=== PATIENT | female | born 1960 | race Caucasian/White ===

== ENCOUNTER 2024-10-28 19:11 | Inpatient (IN) | payer OTHER, SELFPAY ==
[2024-10-28] VITALS (35 sets, daily range): BP systolic 110–139; BP diastolic 60–84; PULSE 49–129; RESP 14; TEMP 36.4–36.9; O2SAT 62–96; BMI 47.5
--- NOTE | 2024-10-28 19:19 | ECG_ITS ---
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
--- NOTE | 2024-10-28 19:19 | XR_ITS ---
The [address] [address] Patient Name: VARSHA GALVIN MRN: [id number] date: 1960 Sex: F Assigned Patient Location: ED.MAIN Current Patient Location: ER Accession/Order Number: [id number] Exam Date: 10/28/2024 19:36 Report Date: 10/28/2024 20:57 At the request of: FRANNY LA Procedure: XR chest 1V CXR - 1 VIEW HISTORY: Shortness of breath COMPARISON: None. TECHNIQUE: Single frontal view of the chest is submitted for review. FINDINGS: Diffuse prominence of interstitial lung markings. There are airspace opacities lower lobes. Lungs are adequately expanded. The cardiac silhouette measures enlarged. Pulmonary vascularity is increased. Osseous structures are within normal limits for age. Infrahilar airspace opacity. XR/XR chest 1V IMPRESSION: 1. Infrahilar airspace opacities and bibasilar airspace opacities. Please correlate for pneumonia versus atelectasis. 2. Cardiomegaly with prominence of pulmonary vascularity. Please correlate for congestive heart failure. Electronically authenticated by: OSWALDO WASHINGTON Date: 10/28/2024 20:57
--- NOTE | 2024-10-28 20:04 | ED.GENADUL1 ---
HPI HPI - General Adult General Chief complaint: Shortness of Breath/Dyspnea Stated complaint: short of breath Time Seen by Provider: 10/28/24 19:19 Source: patient Mode of arrival: ambulance Limitations: no limitations History of Present Illness HPI narrative: 64-year-old female presents to the emergency department for shortness of breath. According to the patient the shortness of breath started within the last 1 to 2 hours. She has a history of COPD. She was given 2 aerosol treatments and IV Solu-Medrol by the paramedics and seems to be feeling improved. She has not had a known fever but is on an antibiotic for pneumonia. She reportedly is supposed to be having a CAT scan at some point in the near future and it scheduled as well. She does not complain of any chest pain. Related Data Home Medications ?Medication ?Instructions ?Recorded ?Confirmed albuterol sulfate 90 mcg/actuation inhalation 10/28/24 aerosol inhaler apixaban 5 mg tablet (Eliquis) mg 10/28/24 atorvastatin 40 mg tablet mg 10/28/24 budesonide 160 mcg-glycopyr 9 inh inhalation 10/28/24 mcg-formot 4.8 mcg/actuation HFA inhaler (Breztri Aerosphere) diltiazem HCl 180 mg mg PO 10/28/24 capsule,extended release 24 hr furosemide 40 mg tablet mg 10/28/24 gabapentin 800 mg tablet mg 10/28/24 ipratropium 0.5 mg-albuterol 3 mg ml inhalation 10/28/24 (2.5 mg base)/3 mL nebulization soln levofloxacin 500 mg tablet mg 10/28/24 metoprolol tartrate 25 mg tablet mg 10/28/24 omeprazole 20 mg capsule,delayed mg 10/28/24 release oxycodone-acetaminophen 5 mg-325 tab 10/28/24 mg tablet potassium chloride 10 mEq meq 10/28/24 capsule,extended release prednisone 20 mg tablet mg 10/28/24 Allergies Allergy/AdvReac Type Severity Reaction Status Date / Time No Known Drug Allergies Allergy Verified 10/28/24 19:15 Opioid HPI Opioid Management Most Recent Opioid Data: No Data to Display Review of Systems ROS Narrative A ten point review of systems is negative except as noted above. Exam Narrative Exam Narrative: Nurses note and vital signs reviewed and patient is not hypoxic. General: The patient appears in no apparent distress. Patient is speaking in full sentences. Skin: Warm, dry, no pallor noted. There is no rash noted. Head: Normocephalic, atraumatic Eye: Normal conjunctiva, no drainage Ears, Nose, Mouth, and Throat: oral mucosa is moist. Nares patent. Cardiovascular: Regular Rate and Rhythm, tachycardic Respiratory: Lungs are clear with good air movement, no rales or rhonchi noted Back: non-tender GI: Soft and nontender Musculoskeletal: The patient has no evidence of calf tenderness, symmetrical pulses noted bilaterally Neurological: A&O, normal speech Psychiatric: Cooperative Constitutional Vital Signs, click to edit/add: Last Vital Signs Temp 98.4 F 10/28/24 19:09 Pulse 103 H 10/28/24 20:50 Resp 13 10/28/24 20:50 BP 113/84 10/28/24 20:30 Pulse Ox 89 L 10/28/24 21:30 O2 Del Method Venturi Mask 10/28/24 21:30 O2 Flow Rate 8 10/28/24 21:30 Course Vital Signs Vital signs: Vital Signs Temperature 98.4 F 10/28/24 19:09 Pulse Rate 113 H 10/28/24 19:09 Respiratory Rate 22 H 10/28/24 19:09 Blood Pressure 110/75 10/28/24 19:09 Pulse Oximetry 84 L 10/28/24 19:09 Oxygen Delivery Method Nasal Cannula 10/28/24 19:09 Oxygen Delivery Flow Rate 6 10/28/24 19:09 Temperature 98.4 F 10/28/24 19:09 Pulse Rate 103 H 10/28/24 20:50 Respiratory Rate 13 10/28/24 20:50 Blood Pressure 113/84 10/28/24 20:30 Pulse Oximetry 89 L 10/28/24 21:30 Oxygen Delivery Method Venturi Mask 10/28/24 21:30 Oxygen Delivery Flow Rate 8 10/28/24 21:30 Medical Decision Making MDM Narrative Medical decision making narrative: Chest x-ray and BNP are consistent with CHF. She is requiring supplemental oxygen and we are placing her on a Ventimask because of a history of COPD. She has an established diagnosis of pneumonia and has been on Levaquin for for 5 days and this is noted on the chest x-ray as well. COVID and influenza swabs are negative and she was given IV Lasix. She is being admitted and findings are thoroughly discussed with the patient. Differential Diagnosis Differential Diagnosis: Pneumonia, CHF, COVID, influenza Lab Data Lab results reviewed: Yes I reviewed the patient's lab results Labs: Lab Results 10/28/24 10/28/24 Range/Units 19:32 19:58 WBC 14.1 H (4.0-11.0) 10^3/uL RBC 4.29 (4.20-5.40) 10^6/uL Hgb 11.4 L (12.0-16.0) g/dL Hct 37.7 (36.0-48.0) % MCV 87.9 (81.0-99.0) fL MCH 26.6 L (26.7-34.0) pg MCHC 30.2 (29.9-35.2) g/dL RDW 15.6 H (11.0-15.0) % Plt Count 288 (150-450) 10^3/uL MPV 10.0 (9.5-13.5) fL Seg Neuts % (Manual) 95.0 H (43.0-75.0) Band Neutrophils % 0.0 (0-5) % Lymphocytes % (Manual) 3.0 L (20.5-60.0) % Atypical Lymphs % (Man) 1.0 % Monocytes % (Manual) 0.0 L (1.7-12.0) % Eosinophils % (Manual) 0.0 L (0.9-7.0) % Basophils % (Manual) 1.0 (0.2-2.0) % Neutrophils # (Manual) 13.39 H (1.4-6.5) 10^3/uL Band Neutrophils # 0.0 (0.0-0.3) 10^3/uL Lymphocytes # (Manual) 0.42 L (1.20-3.80) 10^3/uL Abs Atypical Lymphs Man 0.14 Monocytes # (Manual) 0.00 L (0.30-0.80) 10^3/uL Eosinophils # (Manual) 0.00 (0.00-0.70) 10^3/uL Basophils # (Manual) 0.14 H (0.00-0.10) 10^3/uL Hypochromasia 1+ Sodium 141 (136-145) mmol/L Potassium 4.2 (3.5-5.1) mmol/L Chloride 98 (98-107) mmol/L Carbon Dioxide 37.4 H (21.0-32.0) mmol/L Anion Gap 9.8 BUN 17.0 (7.0-18.0) mg/dL Creatinine 1.18 H (0.55-1.02) mg/dL Est GFR ( Amer) 56 L (>=60 mL/min/1.73m^2) Est GFR (Non-Af Amer) 46 L (>=60 mL/min/1.73m^2) BUN/Creatinine Ratio 14.4 Glucose 269 H (74-106) mg/dL Calcium 8.9 (8.5-10.1) mg/dL Troponin I High Sens 20.3 (4.0-51.3) pg/mL NT-Pro-B Natriuret Pep 2656.0 H* (<=900.0) pg/mL Influenza Type A Ag Negative Influenza Type B Ag Negative SARS-CoV-2 Ag (CV2AG) Negative (NEGATIVE) Imaging Data Chest x-ray: Radiologist's impression: ITS Impressions Chest X-Ray 10/28/24 19:19 IMPRESSION: 1. Infrahilar airspace opacities and bibasilar airspace opacities. Please correlate for pneumonia versus atelectasis. 2. Cardiomegaly with prominence of pulmonary vascularity. Please correlate for congestive heart failure. Electronically authenticated by: OSWALDO WASHINGTON Date: 10/28/2024 20:57 ECG Data Attestation: I personally reviewed and interpreted this ECG as follows: (EKG on my interpretation shows sinus tachycardia with a rate of 106) Critical Care Time Critical Care Time Critical Care Time: Yes Total Critical Care Time: 35 Attestation: Due to the high probability of sudden and clinically significant deterioration in the patient's condition he/she required the highest level of my preparedness to intervene urgently I provided critical care time including documentation time, medication orders and management, reevaluation, vital sign assessment, ordering and reviewing of lab tests, ordering and reviewing of x-ray studies, and admission orders. Aggregate critical care time is 35 minutes including only time during which I was engaged in work directly related to his/her care and did not include time spent treating other patients simultaneously. Discharge Plan Discharge Chief Complaint: Shortness of Breath/Dyspnea Clinical Impression: Congestive heart failure Patient Disposition: Admitted As Inpatient Time of Disposition Decision: 21:38 Condition: Fair
[2024-10-28 20:09] LABS: Hematocrit 37.7 % (36.0-48.0); Hemoglobin 11.4 g/dL (12.0-16.0); Mean Corpuscular HGB Conc 30.2 g/dL (29.9-35.2); Mean Corpuscular Hemoglobin 26.6 pg (26.7-34.0); Mean Corpuscular Volume 87.9 fL (81.0-99.0); Platelet Count 288 10^3/uL (150-450); Red Blood Count 4.29 10^6/uL (4.20-5.40); Red Cell Distribution Width 15.6 % (11.0-15.0); White Blood Count 14.1 10^3/uL (4.0-11.0)
[2024-10-28 20:18] LABS: Influenza Virus A Antigen Negative; Influenza Virus B Antigen Negative; Internal Control Within Normal Limits; SARS-CoV-2 Ag NEGATIVE (NEGATIVE)
[2024-10-28 20:27] LABS: Anion Gap 9.8; BUN Creatinine Ratio 14.4; Calcium 8.9 mg/dL (8.5-10.1); Carbon Dioxide 37.4 mmol/L (21.0-32.0); Chloride 98 mmol/L (98-107); Estimated GFR (African America 56 (>=60 mL/min/1.73m^2); Estimated GFR (Non-African Ame 46 (>=60 mL/min/1.73m^2); Glucose 269 mg/dL (74-106); Potassium 4.2 mmol/L (3.5-5.1); Sodium 141 mmol/L (136-145); Troponin I High Sensitivity 20.3 pg/mL (4.0-51.3)
[2024-10-28 20:58] LABS: Segmented Neut Absolute Manual 13.39 10^3/uL (1.4-6.5)
[2024-10-28 20:59] LABS: Atypical Lymphocytes Abs Man 0.14; Basophils Abs Manual 0.14 10^3/uL (0.00-0.10); Lymphocytes Absolute Manual 0.42 10^3/uL (1.20-3.80)
[2024-10-28 21:00] LABS: Hypochromasia 1+
[2024-10-28] MEDS: FUROSEMIDE 40 MG/4 ML VIAL IVP (22:02)
[2024-10-29] VITALS (74 sets, daily range): BP systolic 94–127; BP diastolic 57–74; PULSE 73–117; RESP 14; TEMP 36.4–36.8; O2SAT 80–98
[2024-10-29] MEDS: IPRATROPIUM/ALBUTEROL SULFATE 3 ML AMPUL.NEB IH ×4 (04:10→23:26)
[2024-10-29 05:36] LABS: PCO2 VBG 51.4 mmHg (40.0-52.0); pH VBG 7.479 (7.330-7.430)
[2024-10-29 05:37] LABS: Hematocrit 35.3 % (36.0-48.0); Hemoglobin 10.9 g/dL (12.0-16.0); Mean Corpuscular HGB Conc 30.9 g/dL (29.9-35.2); Mean Corpuscular Hemoglobin 26.8 pg (26.7-34.0); Mean Corpuscular Volume 86.9 fL (81.0-99.0); Mean Platelet Volume 9.8 fL (9.5-13.5); Platelet Count 260 10^3/uL (150-450); Red Blood Count 4.06 10^6/uL (4.20-5.40); Red Cell Distribution Width 15.5 % (11.0-15.0); White Blood Count 7.8 10^3/uL (4.0-11.0)
[2024-10-29 06:01] LABS: Alanine Aminotransferase 25 U/L (14-59); Albumin Globulin Ratio 0.6; Albumin Level 2.3 g/dL (3.4-5.0); Alkaline Phosphatase 69 U/L (46-116); Anion Gap 8.5; Aspartate Amino Transferase 16 U/L (15-37); BUN Creatinine Ratio 21.6; Bilirubin Total 0.3 mg/dL (0.2-1.0); Calcium 8.6 mg/dL (8.5-10.1); Carbon Dioxide 38.4 mmol/L (21.0-32.0); Chloride 99 mmol/L (98-107); Estimated GFR (African America >60 (>=60 mL/min/1.73m^2); Estimated GFR (Non-African Ame >60 (>=60 mL/min/1.73m^2); Globulin 4.1 g/dL; Glucose 296 mg/dL (74-106); Potassium 3.9 mmol/L (3.5-5.1); Sodium 142 mmol/L (136-145); Total Protein 6.4 g/dL (6.4-8.2)
[2024-10-29] MEDS: FUROSEMIDE 20 MG/2 ML VIAL IVP (06:13)
[2024-10-29] MEDS: AZITHROMYCIN 250 MG TABLET 500 MG PO (08:11)
[2024-10-29] MEDS: OMEPRAZOLE 20 MG CAPSULE.DR PO (08:11)
[2024-10-29] MEDS: CEFTRIAXONE 1,000 MG in 0.9 % SODIUM CHLORIDE 50 ML 100 MG IV (08:11)
[2024-10-29] MEDS: GABAPENTIN 400 MG CAPSULE 800 MG PO ×3 (08:11→21:25)
--- NOTE | 2024-10-29 08:16 | PC.NURSE ---
pt awakens to name, does not know where she is or why she is here. does not know date. pt states i'm somewhere, i'm somewhere when asked where she is. pt repetitive when answering questions. pt stated she wanted melted toast for breakfast, then continues to repeat melted toast. attempted to orient pt without success. pt pleasant, repositioned in bed for comfort.
--- NOTE | 2024-10-29 09:25 | CT_ITS ---
[address] [address] Patient Name: VARSHA GALVIN MRN: [id number] date: 1960 Sex: F Assigned Patient Location: ICU Current Patient Location: ICU Accession/Order Number: [id number] Exam Date: 10/29/2024 11:08 Report Date: 10/29/2024 11:54 At the request of: SHAIKH GWENDOLYN Procedure: CT chest w con EXAMINATION: CT chest w con HISTORY: Pneumonia/Lung mass COMPARISON: CT chest 11/19/2020 TECHNIQUE: Multi-planar CT images were obtained without and/or with IV contrast as indicated by examination type. Axial, Coronal, and Sagittal images. Dose reduction techniques were achieved by using automated exposure control and/or adjustment of mA and/or kV according to patient size and/or use of iterative reconstruction technique. FINDINGS: LUNGS: Dense patchy opacities scattered within the right lower lobe and a few faint opacities within right upper lobe. Partial consolidation of left lower lobe basilar segments. Patent bronchi bilaterally. PLEURA: No mass, effusion, or pneumothorax. VASCULATURE: No abnormality. YO: No mass or adenopathy. MEDIASTINUM: No mass or adenopathy. CARDIAC: No enlargement or pericardial thickening.. Coronary artery calcifications: AORTA: No aneurysm or dissection. CHEST WALL: No mass or axillary adenopathy. BONES: No bone lesion or fracture. LIMITED ABDOMEN: No suspicious findings Limited images of the upper abdomen. OTHER: Negative. CT/CT chest w con IMPRESSION: 1. Bilateral pulmonary infiltrates suggestive of pneumonia near complete consolidation of the left lower lobe basilar segments. Electronically authenticated by: GREGORIO EDGE Date: 10/29/2024 11:54
--- NOTE | 2024-10-29 09:25 | SWNOTE1 ---
JAMESON had email from April at [facility] in regards to pt. Pt is there prison as she was just cut from skilled care. April let us know that pt is confused at times, she wears a BIPAP at night and 6.5 liters of oxygen continuous. If she needs SNF she will be a precert.
--- NOTE | 2024-10-29 10:42 | CM.NOTE ---
Rounds made with Dr. Tran, discussed plan of care with pt. Continue diuretics, no discharge. SW also called [facility] and spoke with April pt's baseline oxygen 6.5L NC.
[2024-10-29] MEDS: BUDESONIDE 0.5 MG/2 ML AMPULE NEB IH ×2 (11:26→23:26)
[2024-10-29] MEDS: METOPROLOL TARTRATE 25 MG TABLET PO ×2 (11:34→21:24)
[2024-10-29] MEDS: APIXABAN 5 MG TABLET PO ×2 (11:34→21:25)
--- NOTE | 2024-10-29 11:43 | P.HP_ITS ---
HPI H&P: HPI History of Present Illness Chief complaint: short of breath, CHF Narrative: 64-year-old female with history of chronic respiratory failure with hypoxia secondary to COPD, heart failure with preserved ejection fraction presented to ER with worsening shortness of breath for 1 day and inability to catch her breath along with lower extremity edema. Patient uses 5 to 6 L of oxygen at baseline and requires BiPAP at night for obstructive sleep apnea/obesity hypoventilation syndrome. While in ER she was hypoxic with pulse ox as low as 66 and even with supplemental oxygen up to 6 L-she was still quite short of breath with increased work of breathing and was put on BiPAP. Her workup is indicated above acute on chronic diastolic heart failure with possible bilateral infiltrates on chest x-ray. However she denies any cough, fever or chills. Of note she was admitted at [facility] for 2 weeks was treated for pneumonia and had just finished her antibiotics earlier this month. Patient was admitted overnight and was treated with IV Lasix and BiPAP for acute on chronic respiratory failure. She had good urine output overnight and subjectively feels better but she is still volume overloaded on exam and short of breath on minimal exertion. Patient was scheduled an outpatient for CT chest for evaluation for hilar mass. I ordered a CT chest to ensure she does not have consolidation/pneumonia which will require treatment with broad-spectrum antibiotics given her recent hospital admission. She is currently on IV Rocephin for presumed bacterial pneumonia which would be an adequate for hospital-acquired pneumonia given recent antibiotic use and prednisone use for COPD exacerbation as she is at high risk of resistant respiratory infection. My evaluation, I noted that she was slightly confused and was unable to provide accurate information about her previous history. We confirmed from [facility] and she is at her baseline intermittently confused. Opioid HPI Opioid Management Most Recent Pain and Opioid Data: Last Pain Assessment 10/29/24 11:00 Last ORT Total Score 0 10/28/24 22:45 10/28/24 Last ORT Risk Category Low Risk 10/28/24 22:45 10/28/24 Review of Systems ROS Status of ROS 10 or more systems reviewed and unremark able except as noted in history and below [facility] Medical History (Updated 10/29/24 @ 11:53 by Shaikh Marc MD) HTN (hypertension) ?I10 - Essential (primary) hypertension (ICD-10) Paroxysmal A-fib ?I48.0 - Paroxysmal atrial fibrillation (ICD-10) Pneumonia ?J18.9 - Pneumonia, unspecified organism (ICD-10) Dysphagia ?R13.10 - Dysphagia, unspecified (ICD-10) Nutritional deficiency ?E63.9 - Nutritional deficiency, unspecified (ICD-10) Difficulty walking ?R26.2 - Difficulty in walking, not elsewhere classified (ICD-10) Syncope and collapse ?R55 - Syncope and collapse (ICD-10) Muscle weakness ?M62.81 - Muscle weakness (generalized) (ICD-10) Osteoarthritis ?M19.90 - Unspecified osteoarthritis, unspecified site (ICD-10) GERD without esophagitis ?K21.9 - Gastro-esophageal reflux disease without esophagitis (ICD-10) Gastritis ?K29.70 - Gastritis, unspecified, without bleeding (ICD-10) Duodenal ulcer ?K26.9 - Duodenal ulcer, unspecified as acute or chronic, without hemorrhage or perforation (ICD-10) Hyperlipidemia ?E78.5 - Hyperlipidemia, unspecified (ICD-10) Polyneuropathy ?G62.9 - Polyneuropathy, unspecified (ICD-10) Acute on chronic systolic HF (heart failure) ?I50.23 - Acute on chronic systolic (congestive) heart failure (ICD-10) Pulmonary hypertension ?I27.20 - Pulmonary hypertension, unspecified (ICD-10) Myocardial infarct ?I21.9 - Acute myocardial infarction, unspecified (ICD-10) Sleep apnea ?G47.30 - Sleep apnea, unspecified (ICD-10) Displaced fracture of left ulna styloid process, subsequent encounter for closed fracture with routine healing ?S52.612D - Displaced fracture of left ulna styloid process, subsequent encounter for closed fracture with routine healing (ICD-10) Chronic respiratory failure with hypoxia ?J96.11 - Chronic respiratory failure with hypoxia (ICD-10) Morbid obesity ?E66.01 - Morbid (severe) obesity due to excess calories (ICD-10) Broken arm ?S42.309A - Unspecified fracture of shaft of humerus, unspecified arm, initial encounter for closed fracture (ICD-10) COPD (chronic obstructive pulmonary disease) ?J44.9 - Chronic obstructive pulmonary disease, unspecified (ICD-10) Congestive heart failure ?I50.9 - Heart failure, unspecified (ICD-10) Family History (Updated 10/28/24 @ 22:58 by Chin Bess) Other Delayed recovery from anesthesia Social History (Updated 10/28/24 @ 22:58 by Chin Bess) Within the past year, how often did you have a drink containing alcohol: monthly or less Within the past year, how many standard drinks containing alcohol did you have on a typical day: 1 or 2 Within the past year, how often did you have six or more drinks on one occasion: never Total score: 0 Score interpretation: A score less than 3 is consistent with normal alcohol consumption. Smoking status: Former smoker Non-prescribed substance use: denies use Known occupational exposures/hazards: No Highest level of school completed/degree received: high school graduate Little interest or pleasure in doing things: not at all Feeling down, depressed, or hopeless: not at all Meds Home Medications and Allergies Home Medications ?Medication ?Instructions ?Recorded ?Confirmed ?Type albuterol sulfate 90 mcg/actuation 2 inh inhalation Q6H 10/28/24 10/28/24 History aerosol inhaler apixaban 5 mg tablet (Eliquis) 5 mg PO Q12H 10/28/24 10/28/24 History atorvastatin 40 mg tablet 40 mg PO .Qhs 10/28/24 10/28/24 History budesonide 160 mcg-glycopyr 9 2 inh inhalation DAILY 10/28/24 10/28/24 History mcg-formot 4.8 mcg/actuation HFA inhaler (Breztri Aerosphere) diltiazem HCl 180 mg 180 mg PO Q24H 10/28/24 10/28/24 History capsule,extended release 24 hr furosemide 40 mg tablet 40 mg PO DAILY 10/28/24 10/28/24 History gabapentin 800 mg tablet 800 mg PO TID 10/28/24 10/29/24 History ipratropium 0.5 mg-albuterol 3 mg 3 ml inhalation Q6H 10/28/24 10/28/24 History (2.5 mg base)/3 mL nebulization soln levofloxacin 500 mg tablet 500 mg PO Q24H 10/28/24 10/28/24 History metoprolol tartrate 25 mg tablet 25 mg PO Q12H 10/28/24 10/28/24 History omeprazole 20 mg capsule,delayed 20 mg PO DAILY 10/28/24 10/28/24 History release oxycodone-acetaminophen 5 mg-325 1 tab PO Q6H PRN pain 10/28/24 10/28/24 History mg tablet potassium chloride 10 mEq 10 meq PO Q8H 10/28/24 10/28/24 History capsule,extended release Allergies Allergy/AdvReac Type Severity Reaction Status Date / Time No Known Drug Allergies Allergy Verified 10/28/24 19:15 Exam Constitutional Vital Signs, click to edit/add: Last Vital Signs Temp 97.5 F L 10/28/24 22:45 Pulse 105 H 10/29/24 11:38 Resp 17 10/29/24 08:00 BP 127/70 10/29/24 07:47 Pulse Ox 88 L 10/29/24 11:38 O2 Del Method Nasal Cannula 10/29/24 11:38 O2 Flow Rate 5 10/29/24 11:38 FiO2 60 10/29/24 06:23 Documenting provider has reviewed patient's vital signs: yes Common normals: no apparent distress and oriented x3 General appearance: cooperative HENMT Common normals: normocephalic and head/scalp atraumatic Head and scalp: normocephalic and atraumatic Eye Common normals: conjunctivae normal and no scleral icterus Conjunctiva: conjunctiva(e) normal Respiratory Common normals: normal respiratory effort and no use of accessory muscles Effort & inspection: able to speak in complete sentences Auscultation: rales and diminished lung sounds Cardio Common normals: regular rate, S1 normal heart sound and S2 normal heart sound Rate: regular rate Heart sounds: S1 normal and S2 normal GI Common normals: Normal to inspection, nondistended, normoactive bowel sounds present, soft to palpation, non-tender and no hepatosplenomegaly Palpation: soft and no hepatosplenomegaly Extremity Common normals: no clubbing, cyanosis or edema Neuro Common normals: oriented x3, moves all extremities and no focal motor deficits Psych Common normals: mental status grossly normal, denies hallucinations, denies homicidal ideation and denies suicidal ideation Results Labs Labs: Short CBC 10/28/24 10/29/24 Range/Units 19:58 05:19 WBC 14.1 H 7.8 (4.0-11.0) 10^3/uL Hgb 11.4 L 10.9 L (12.0-16.0) g/dL Hct 37.7 35.3 L (36.0-48.0) % Plt Count 288 260 (150-450) 10^3/uL BMP 10/28/24 10/29/24 19:58 05:19 Sodium 141 142 Potassium 4.2 3.9 Chloride 98 99 Carbon Dioxide 37.4 H 38.4 H BUN 17.0 19.0 H Creatinine 1.18 H 0.88 Glucose 269 H 296 H Calcium 8.9 8.6 Liver Function 10/29/24 Range/Units 05:19 Total Bilirubin 0.3 (0.2-1.0) mg/dL AST 16 (15-37) U/L ALT 25 (14-59) U/L Alkaline Phosphatase 69 (46-116) U/L Albumin 2.3 L (3.4-5.0) g/dL ABG ABG results: 10/29/24 05:19 VBG pH 7.479 H VBG pCO2 51.4 Assessment and Plan Assessment and Plan (1) Acute and chronic respiratory failure with hypoxia: Assessment and Plan: Required BiPAP therapy overnight for persistent hypoxia despite supplemental oxygen up to 6 L. She is feeling better and improved after IV diuresis and BiPAP therapy. She is still volume overload on exam and will need continued IV diuresis. (2) Acute on chronic diastolic heart failure: Assessment and Plan: Volume overload on exam. Continue with IV Lasix 40 twice daily. No need for echo as one was done recently within a month monitor intake and output. Daily weights. (3) Chronic respiratory failure with hypoxia: Assessment and Plan: Patient uses 6 L of oxygen at baseline due to COPD. (4) Paroxysmal A-fib: Assessment and Plan: In normal sinus rhythm. On Eliquis for prophylaxis (5) HTN (hypertension): Assessment and Plan: Blood pressure is stable. Continue with home medications. Qualifiers: Hypertension type: primary hypertension Qualified Code(s): I10 - Essential (primary) hypertension (6) COPD (chronic obstructive pulmonary disease): Assessment and Plan: Does not appear to be in acute exacerbation with no active wheezing or bronchospasm noted on exam. Continue with Breztri and DuoNebs as needed. Qualifiers: COPD type: unspecified COPD Qualified Code(s): J44.9 - Chronic obstructive pulmonary disease, unspecified (7) Hyperlipidemia: Assessment and Plan: Continue with Lipitor. Qualifiers: Hyperlipidemia type: unspecified Qualified Code(s): E78.5 - Hyperlipidemia, unspecified Plan Continue with IV diet this is as volume overload on exam and is still feeling short of breath. CT chest pending to ensure patient does not have underlying pneumonia as current treatment for community-acquired pneumonia would be an adequate because of recent antibiotic use and prednisone use and she will need to be treated for hospital-acquired pneumonia. Patient is improved with IV diuresis but is still requires inpatient treatment for acute on chronic diastolic heart failure and possible pneumonia. Urinary Catheter Management Urinary Catheter Management 2-way Urethral: Cath placed during this visit: yes Urethral indwelling: No Insertion date: 10/28/24 Insertion time: 22:07
[2024-10-29] MEDS: PIPERACILLIN SODIUM/TAZOBACTAM 3.375 GM in 0.9 % SODIUM CHLORIDE 50 ML IV ×2 (13:17→21:24)
--- NOTE | 2024-10-29 13:31 | SWNOTE1 ---
SW to stop in and speak with pt, pt has had some confusion. JAMESON did call pt's contact listed who's name is Ainsley. She is listed as daughter, but is her best friend. JAMESON called registration and had them fix it. JAMESON spoke with Ainsley. She voiced pt was living on her property prior to go to [facility]. Pt did wear 8 liters of home oxygen at home and had Bipap. Pt refused to wear Bipap due to the mask and she stated the purchaser at [facility] was supposed to get her something different, but that has not happened. Ainsley stated the goal is to get her back home. JAMESON did advise her that therapy is recommending SNF to get stronger. Ainsley is in agreement and ok with [facility]. JAMESON to send referral to [facility] for precert to be started. SW to speak with pt as well. JAMESON udpated Dr. Tran as well. Pt's friend would like a call from nurse as well with updates.
--- NOTE | 2024-10-29 13:41 | SWNOTE1 ---
JAMESON called contact listed, Ainsley. She is listed as daughter but is best friend. SW asked about a daughter and she stated they do not get along. JAMESON explained that SW will speak with pt, but has some confusion so wanted to check with emergency contact. Pt's friend advised SW that pt's goal is to return home and she lives on her property. She stated she wears 8 liters of oxygen at home and has bipap. She stated she hates the bipap, but if she would wear it she would get better. She stated when pt was at [facility] they were getting her something different than BIpap but was not sure what it was and they never received anything. JAMESON spoke with Ainsley about the recommendation of SNF for strengthening. Ainsley in agreement and would like [facility]. Pt is a precert. JAMESON to send referral. JAMESON called registration to have them fix contact. JAMESON let April at [facility] know and sent referral for precert. Referral included leonidas sheet, phsyician notes, OT note, labs, vitals, diagnostic imaging, and med list.
--- NOTE | 2024-10-29 13:49 | PC.NURSE ---
taken to [facility] via wheelchair, belongings taken with pt. report given to bereket reyes rn
--- NOTE | 2024-10-29 13:51 | SWNOTE1 ---
Important Message from Medicare reviewed and discussed with patient's emergency contact, Ainsley Rudd. Pt's friend verbalized understanding and SW signed the form that it was reviewed. Original placed in pt's room and copy placed in patient?s chart.
--- NOTE | 2024-10-29 14:17 | SWNOTE1 ---
Precert has been started to [facility].
--- NOTE | 2024-10-29 15:56 | DIETREC ---
Recommend Heart Healthy diet d/t cardiac history, dx CHF. Text to Dr. Tran.
[2024-10-29] MEDS: VANCOMYCIN HCL 1,250 MG in 0.9 % SODIUM CHLORIDE 250 ML 166.667 MG IV (17:54)
[2024-10-29] MEDS: FUROSEMIDE 20 MG/2 ML VIAL 40 MG IVP (17:54)
[2024-10-29] MEDS: 0.9 % SODIUM CHLORIDE 250 ML 10 ML IV (17:54)
[2024-10-29] MEDS: ATORVASTATIN CALCIUM 40 MG TABLET PO (21:25)
[2024-10-29] MEDS: DILTIAZEM HCL 180 MG CAP.ER.24H PO (21:25)
[2024-10-30] VITALS (21 sets, daily range): BP systolic 96–110; BP diastolic 53–65; PULSE 59–109; RESP 14; TEMP 36.4–36.8; O2SAT 90–98
--- NOTE | 2024-10-30 04:01 | PC.NURSE ---
pt pulled out both IVs. Multiple nurses attempted to restart IV with no success. Night hospitalist notified that patient has no iv access at this time.
[2024-10-30] MEDS: IPRATROPIUM/ALBUTEROL SULFATE 3 ML AMPUL.NEB IH ×4 (05:28→23:12)
[2024-10-30] MEDS: GABAPENTIN 400 MG CAPSULE 800 MG PO ×3 (05:35→21:35)
[2024-10-30 06:22] LABS: Basophils Absolute Auto 0.1 10^3/uL (0.0-0.1); Basophils Percent Auto 0.3 % (0.2-2.0); Eosinophils Percent Auto 0.1 % (0.9-7.0); Hematocrit 36.1 % (36.0-48.0); Immature Granulocytes Abs Auto 0.17 10^3/uL (0.00-0.03); Lymphocytes Absolute Auto 1.7 10^3/uL (1.2-3.8); Lymphocytes Percent Auto 10.2 % (20.5-60.0); Mean Corpuscular HGB Conc 30.5 g/dL (29.9-35.2); Mean Corpuscular Volume 88.5 fL (81.0-99.0); Mean Platelet Volume 9.5 fL (9.5-13.5); Monocytes Absolute Auto 1.1 10^3/uL (0.3-0.8); Monocytes Percent Auto 6.3 % (1.7-12.0); Neutrophils Percent Auto 82.1 % (43.0-75.0); Platelet Count 327 10^3/uL (150-450); Red Blood Count 4.08 10^6/uL (4.20-5.40); Red Cell Distribution Width 15.5 % (11.0-15.0)
[2024-10-30 06:34] LABS: Alanine Aminotransferase 22 U/L (14-59); Albumin Globulin Ratio 0.6; Albumin Level 2.2 g/dL (3.4-5.0); Alkaline Phosphatase 68 U/L (46-116); Anion Gap 7.2; Aspartate Amino Transferase 12 U/L (15-37); BUN Creatinine Ratio 23.5; Bilirubin Total 0.2 mg/dL (0.2-1.0); Calcium 8.6 mg/dL (8.5-10.1); Carbon Dioxide 37.6 mmol/L (21.0-32.0); Chloride 101 mmol/L (98-107); Estimated GFR (African America >60 (>=60 mL/min/1.73m^2); Estimated GFR (Non-African Ame 57 (>=60 mL/min/1.73m^2); Globulin 3.9 g/dL; Glucose 192 mg/dL (74-106); Potassium 3.8 mmol/L (3.5-5.1); Sodium 142 mmol/L (136-145); Total Protein 6.1 g/dL (6.4-8.2)
[2024-10-30] MEDS: AZITHROMYCIN 250 MG TABLET 500 MG PO (09:03)
[2024-10-30] MEDS: OMEPRAZOLE 20 MG CAPSULE.DR PO (09:03)
[2024-10-30] MEDS: APIXABAN 5 MG TABLET PO ×2 (09:03→21:35)
--- NOTE | 2024-10-30 10:35 | CM.NOTE ---
Rounds made with Dr. Tran, pt will discharge to [facility] for skilled therapy when medically stable.
--- NOTE | 2024-10-30 10:50 | REH.PTDLY ---
Physical Therapy Daily Note PT Daily Note/Assess Start: 10/30/24 10:42 Freq: Status: Active Protocol: Document 10/30/24 10:42 ANDRE (Rec: 10/30/24 10:49 ANDRE [id number]) Physical Therapy Daily Note/Assessment Time In 09:07 Time Out 09:20 Subjective Nursing in room, getting ready to have pt get up. Took over care. Therapeutic Exercise 4 Minutes (minutes) Therapeutic Exercise 0 Units Therapeutic Exercise Instructed in B LE standing marching, mini squats, and Treatment HR 5-8x ea for improved strength. Pt fatigues easily with these exs. Therapeutic Activity 8 Minutes (minutes) Therapeutic Activity 1 Units Therapeutic Activity Pt requires Mod A with supine to sit transfers. Sit to Comments stand transfer with bed slightly elevated to assist as pt struggles from lower surface Min A. Gait training with platform RW for L UE 4 feet to chair, CGA. Pt sits down to rest for 2 mins prior to ambulating to restroom. Pt ambulates with platform RW 20 feet to restroom CGA with O2. OT takes over care at this time. Total Therapy 12 Minutes Total Physical 1 Therapy Units Daily Note Summary Pt will benefit from SNF stay at [facility] to become stronger and more Ind with gait and transfers as pt is NWB to L UE. Pt needs Mod A with transfers out of bed today.
--- NOTE | 2024-10-30 11:03 | PM.IMPN1 ---
Progress Note: A&P Assessment and Plan (1) Bilateral pneumonia: Assessment and Plan: b/l PNA on CT. Recent hospital admission for PNA and received abx and Prednisone for it. Will treat as hospital acquired PNA. On Vanc/zosyn Repeat CXR tomorrow. Qualifiers: Pneumonia type: due to unspecified organism Lung location: lower lobe of lung Qualified Code(s): J18.9 - Pneumonia, unspecified organism (2) Acute and chronic respiratory failure with hypoxia: Assessment and Plan: Back at her baseline. Improving. Still SOB at rest and on minimal exertion (3) Acute on chronic diastolic heart failure: Assessment and Plan: Good UO on lasix. Monitor I/O. No need for ECHO as last one performed within a month. Decrease Lasix to once daily. (4) Chronic respiratory failure with hypoxia: Assessment and Plan: On 6 L at baseline. BIPAP at night (5) Paroxysmal A-fib: Assessment and Plan: In NSR. On Eliquis for stroke px. (6) HTN (hypertension): Assessment and Plan: Stable BP. C/w home medications. Qualifiers: Hypertension type: primary hypertension Qualified Code(s): I10 - Essential (primary) hypertension (7) COPD (chronic obstructive pulmonary disease): Assessment and Plan: No active wheezing. c/w duonebs. Qualifiers: COPD type: unspecified COPD Qualified Code(s): J44.9 - Chronic obstructive pulmonary disease, unspecified (8) Hyperlipidemia: Assessment and Plan: c/w lipitor. Qualifiers: Hyperlipidemia type: unspecified Qualified Code(s): E78.5 - Hyperlipidemia, unspecified Internal Medicine - PN: Subj Subjective Interval history: Seen and examined. Feels well. Was noted to be dyspneic at rest but she had just worked with OT. At her baseline now. Exam Constitutional Vital Signs, click to edit/add: Last Vital Signs Temp 97.8 F 10/30/24 09:05 Pulse 96 H 10/30/24 10:02 Resp 18 10/30/24 09:05 BP 108/64 10/30/24 09:05 Pulse Ox 93 L 10/30/24 09:05 O2 Del Method Nasal Cannula 10/30/24 09:05 O2 Flow Rate 6.5 10/30/24 09:05 FiO2 60 10/30/24 05:28 Documenting provider has reviewed patient's vital signs: yes Common normals: no apparent distress and oriented x3 General appearance: cooperative Respiratory Common normals: normal respiratory effort and no use of accessory muscles Effort & inspection: able to speak in complete sentences Auscultation: diminished lung sounds Cardio Common normals: regular rate, S1 normal heart sound and S2 normal heart sound Rate: regular rate Heart sounds: S1 normal and S2 normal Extremity Common normals: no clubbing, cyanosis or edema Neuro Common normals: oriented x3, moves all extremities and no focal motor deficits Psych Common normals: mental status grossly normal, denies hallucinations, denies homicidal ideation and denies suicidal ideation Internal Medicine - PN: Obj Da Labs Labs: Laboratory Results - last 24 hr 10/30/24 05:20 WBC 17.0 H RBC 4.08 L Hgb 11.0 L Hct 36.1 MCV 88.5 MCH 27.0 MCHC 30.5 RDW 15.5 H Plt Count 327 MPV 9.5 Neut % (Auto) 82.1 H Lymph % (Auto) 10.2 L [place] % (Auto) 6.3 Eos % (Auto) 0.1 L Baso % (Auto) 0.3 Neut # (Auto) 14.0 H Lymph # (Auto) 1.7 [place] # (Auto) 1.1 H Eos # (Auto) 0.0 Baso # (Auto) 0.1 Abs Immat Gran (auto) 0.17 H Imm/Tot Granulo (auto) 1.0 H Sodium 142 Potassium 3.8 Chloride 101 Carbon Dioxide 37.6 H Anion Gap 7.2 BUN 23.0 H Creatinine 0.98 Est GFR ( Amer) >60 Est GFR (Non-Af Amer) 57 L BUN/Creatinine Ratio 23.5 Glucose 192 H Calcium 8.6 Total Bilirubin 0.2 AST 12 L ALT 22 Alkaline Phosphatase 68 Total Protein 6.1 L Albumin 2.2 L Globulin 3.9 Albumin/Globulin Ratio 0.6 Urinary Catheter Management Urinary Catheter Management 2-way Urethral: Cath placed during this visit: yes Urethral indwelling: No Insertion date: 10/28/24 Insertion time: 22:07
[2024-10-30] MEDS: BUDESONIDE 0.5 MG/2 ML AMPULE NEB IH ×2 (11:11→23:12)
--- NOTE | 2024-10-30 13:57 | SWNOTE1 ---
SW sent updated PT/OT, progress notes, vitals, and labs to [facility] for precert.
[2024-10-30] MEDS: FUROSEMIDE 40 MG/4 ML VIAL IVP (13:59)
[2024-10-30] MEDS: PIPERACILLIN SODIUM/TAZOBACTAM 3.375 GM in 0.9 % SODIUM CHLORIDE 50 ML IV ×2 (13:59→21:34)
[2024-10-30] MEDS: VANCOMYCIN HCL 1,250 MG in 0.9 % SODIUM CHLORIDE 250 ML 250 MG IV (18:03)
[2024-10-30] MEDS: METOPROLOL TARTRATE 25 MG TABLET PO (21:35)
[2024-10-30] MEDS: DILTIAZEM HCL 180 MG CAP.ER.24H PO (21:35)
[2024-10-30] MEDS: ATORVASTATIN CALCIUM 40 MG TABLET PO (21:35)
[2024-10-31] VITALS (15 sets, daily range): BP systolic 91–145; BP diastolic 44–79; PULSE 51–97; RESP 14; TEMP 36.5; O2SAT 90–95
[2024-10-31] MEDS: VANCOMYCIN HCL 1,250 MG in 0.9 % SODIUM CHLORIDE 250 ML 167 MG IV (03:13)
[2024-10-31] MEDS: IPRATROPIUM/ALBUTEROL SULFATE 3 ML AMPUL.NEB IH ×2 (04:18→10:49)
[2024-10-31] MEDS: GABAPENTIN 400 MG CAPSULE 800 MG PO ×2 (05:11→13:18)
[2024-10-31] MEDS: PIPERACILLIN SODIUM/TAZOBACTAM 3.375 GM in 0.9 % SODIUM CHLORIDE 50 ML IV ×2 (05:11→13:18)
--- NOTE | 2024-10-31 06:00 | XR_ITS ---
[address] [address] Patient Name: VARSHA GALVIN MRN: [id number] date: 1960 Sex: F Assigned Patient Location: [place] Current Patient Location: [place] Accession/Order Number: [id number] Exam Date: 10/31/2024 06:05 Report Date: 10/31/2024 07:35 At the request of: SHAIKH GWENDOLYN Procedure: XR chest 1V EXAM: XR chest 1V HISTORY: PNA COMPARISON: 10/28/2024 TECHNIQUE: Portable FINDINGS: LUNGS: Perihilar infiltrates. Moderate left basilar infiltrate obscuring the heart border VASCULATURE: Moderately increased pulmonary vasculature. PLEURA: No pneumothorax, effusion, or pleural thickening. CARDIAC: No cardiomegaly or cardiac silhouette abnormality. MEDIASTINUM: No visible mass or adenopathy. BONES: No fracture or visible bone lesion. OTHER: Negative. XR/XR chest 1V IMPRESSION: Lingular pneumonia Pulmonary vascular congestion Electronically authenticated by: SANDHYA RAI Date: 10/31/2024 07:35
[2024-10-31 06:25] LABS: Basophils Absolute Auto 0.1 10^3/uL (0.0-0.1); Basophils Percent Auto 0.6 % (0.2-2.0); Eosinophils Absolute Auto 0.1 10^3/uL (0.0-0.7); Eosinophils Percent Auto 0.7 % (0.9-7.0); Hematocrit 36.4 % (36.0-48.0); Hemoglobin 10.7 g/dL (12.0-16.0); Immature Granulocytes Abs Auto 0.15 10^3/uL (0.00-0.03); Immature Granulocytes Pct Auto 1.3 % (0.0-0.5); Lymphocytes Absolute Auto 2.8 10^3/uL (1.2-3.8); Lymphocytes Percent Auto 24.6 % (20.5-60.0); Mean Corpuscular HGB Conc 29.4 g/dL (29.9-35.2); Mean Corpuscular Hemoglobin 26.6 pg (26.7-34.0); Mean Corpuscular Volume 90.3 fL (81.0-99.0); Mean Platelet Volume 9.6 fL (9.5-13.5); Monocytes Absolute Auto 0.7 10^3/uL (0.3-0.8); Monocytes Percent Auto 6.6 % (1.7-12.0); Neutrophils Absolute Auto 7.5 10^3/uL (1.4-6.5); Neutrophils Percent Auto 66.2 % (43.0-75.0); Platelet Count 301 10^3/uL (150-450); Red Blood Count 4.03 10^6/uL (4.20-5.40); Red Cell Distribution Width 15.8 % (11.0-15.0); White Blood Count 11.3 10^3/uL (4.0-11.0)
[2024-10-31 07:47] LABS: Alanine Aminotransferase 21 U/L (14-59); Albumin Globulin Ratio 0.5; Alkaline Phosphatase 60 U/L (46-116); Anion Gap 1.7; Aspartate Amino Transferase 12 U/L (15-37); BUN Creatinine Ratio 23.3; Bilirubin Total 0.3 mg/dL (0.2-1.0); Calcium 8.3 mg/dL (8.5-10.1); Carbon Dioxide 43.3 mmol/L (21.0-32.0); Chloride 106 mmol/L (98-107); Estimated GFR (African America >60 (>=60 mL/min/1.73m^2); Estimated GFR (Non-African Ame >60 (>=60 mL/min/1.73m^2); Globulin 3.8 g/dL; Glucose 100 mg/dL (74-106); Sodium 147 mmol/L (136-145); Total Protein 5.8 g/dL (6.4-8.2)
[2024-10-31] MEDS: AZITHROMYCIN 250 MG TABLET 500 MG PO (08:37)
[2024-10-31] MEDS: FUROSEMIDE 40 MG/4 ML VIAL IVP (08:37)
[2024-10-31] MEDS: OMEPRAZOLE 20 MG CAPSULE.DR PO (08:37)
[2024-10-31] MEDS: APIXABAN 5 MG TABLET PO (09:44)
[2024-10-31] MEDS: METOPROLOL TARTRATE 25 MG TABLET PO (09:44)
--- NOTE | 2024-10-31 10:22 | CM.NOTE ---
Rounds made with Dr. Tran. Discharge today to [facility].
--- NOTE | 2024-10-31 10:47 | PT.DAILY ---
Physical Therapy Daily Note PT Daily Note/Assess Start: 10/30/24 10:42 Freq: Status: Active Protocol: Document 10/31/24 10:39 ROHAN (Rec: 10/31/24 10:47 ROHAN [id number]) Physical Therapy Daily Note/Assessment Time In/Time Out Time In 09:30 Time Out 09:45 Pain In Pain N/A Pain Out Pain N/A Subjective Subjective Pt sitting in BS chair upon arrival. Agreeable to PT. Therapeutic Exercise Time Therapeutic Exercise 4 Minutes (minutes) Therapeutic Exercise 0 Units Therapeutic Exercise Treatment Therapeutic Exercise Pt is instructed to complete bilat LE strengthening ex Treatment while sitting in BS chair. This is to improve functional mobility prior to gait and transfers. Therapeutic Activity Time Therapeutic Activity 8 Minutes (minutes) Therapeutic Activity 1 Units Therapeutic Activity Treatment Chair Transfer Contact Guard Assist Ability Therapeutic Activity Pt sit>stand from BS chair CGA for safety. Standing at Comments platform walker 1 min for conversation prior to gait. Pt demonstrates good- static standing balance using platform walker. Pt amb 25' x 2 with platform walker and CGA with assist for O2 lines. Pt seems a little impulsive with turns (Shaila to assist with RW negotiations). Returned to BS chair upon completion with nursing and assistant chief nursing officer present - left in their care. Total Physical Therapy Time Total Therapy 12 Minutes Total Physical 1 Therapy Units Summary Daily Note Summary Improving gait endurance with platform walker but tends to be impulsive with turns leading to safety concerns. Would benefit from SNF stay to regain strength, balance and endurance to be able to return to [facility] to care for herself at home alone.
--- NOTE | 2024-10-31 10:48 | SWNOTE1 ---
JAMESON received an email from April at [facility] and pt is approved to go skilled to [facility]. JAMESON notified nursing and doctor.
[2024-10-31] MEDS: BUDESONIDE 0.5 MG/2 ML AMPULE NEB IH (10:49)
--- NOTE | 2024-10-31 11:12 | PM.DS1 ---
DS: Providers Provider Date of admission: 10/28/24 22:28 Primary care physician: KAYE ANDREWS Admitting clinician: Shaikh Marc Attending physician on admission: Shaikh Marc Consults: 10/29/24 10:19 Occupational Therapy Eval and Treat Routine Reason for consultation: Weakness Physical Therapy Eval and Treat Routine Reason for consultation: Weakness Attending physician on discharge: Shaikh Marc Discharging clinician: Shaikh Marc Anticipated date of discharge: 10/31/24 DS: Diagnosis Discharge Diagnosis (1) Bilateral pneumonia: Qualifiers: Pneumonia type: due to unspecified organism Lung location: lower lobe of lung Qualified Code(s): J18.9 - Pneumonia, unspecified organism (2) Acute and chronic respiratory failure with hypoxia: (3) Acute on chronic diastolic heart failure: (4) Chronic respiratory failure with hypoxia: (5) Paroxysmal A-fib: (6) HTN (hypertension): Qualifiers: Hypertension type: primary hypertension Qualified Code(s): I10 - Essential (primary) hypertension (7) COPD (chronic obstructive pulmonary disease): Qualifiers: COPD type: unspecified COPD Qualified Code(s): J44.9 - Chronic obstructive pulmonary disease, unspecified (8) Hyperlipidemia: Qualifiers: Hyperlipidemia type: unspecified Qualified Code(s): E78.5 - Hyperlipidemia, unspecified DS: Summary Hospital Course Hospital Course: 64-year-old female with history of chronic respiratory failure with hypoxia secondary to COPD, heart failure with preserved ejection fraction presented to ER with worsening shortness of breath for 1 day and inability to catch her breath along with lower extremity edema. Patient uses 5 to 6 L of oxygen at baseline and requires BiPAP at night for obstructive sleep apnea/obesity hypoventilation syndrome. While in ER she was hypoxic with pulse ox as low as 66 and even with supplemental oxygen up to 6 L-she was still quite short of breath with increased work of breathing and was put on BiPAP. Her workup iindicated acute on chronic diastolic heart failure with bilateral infiltrates on chest x-ray and CT chest. She was admitted at [facility] for 2 weeks where she was treated for pneumonia and had just finished her antibiotics earlier this month. Patient admitted at our facility and was treated with IV lasix, IV Zyvox and Zosyn. She clinically improved during the course of admission and returned to her baseline. She was eval by PT/OT and was recommended to have skilled treatment upon discharge. Pt's cultures negative on day of discharge. Patient medically stable for discharge. Called in oral Doxycycline and Augmentin for the patient. She will need f/u with PCP in one week. Status at Discharge Functional status at discharge: uses cane/walker Overall status at discharge: patient is back to baseline Time Spent with Patient Time attestation: Total time spent providing and/or coordinating discharge services: Time spent: greater than 30 minutes Exam Constitutional Vital Signs, click to edit/add: Last Vital Signs Temp 98.2 F 10/30/24 16:37 Pulse 59 L 10/31/24 11:00 Resp 20 10/31/24 11:00 BP 108/44 L 10/31/24 05:24 Pulse Ox 95 10/31/24 11:00 O2 Del Method Nasal Cannula 10/31/24 11:00 O2 Flow Rate 6 10/31/24 11:00 FiO2 50 10/31/24 07:36 Documenting provider has reviewed patient's vital signs: yes Common normals: no apparent distress and oriented x3 General appearance: cooperative Respiratory Common normals: normal respiratory effort and no use of accessory muscles Effort & inspection: able to speak in complete sentences Auscultation: diminished lung sounds Cardio Common normals: regular rate, S1 normal heart sound and S2 normal heart sound Rate: regular rate Heart sounds: S1 normal and S2 normal Extremity Common normals: no clubbing, cyanosis or edema Neuro Common normals: oriented x3, moves all extremities and no focal motor deficits Psych Common normals: mental status grossly normal, denies hallucinations, denies homicidal ideation and denies suicidal ideation DS: Data Data Completed and Pending Labs on day of discharge: Labs from last 24 hours 10/31/24 05:16 WBC 11.3 H RBC 4.03 L Hgb 10.7 L Hct 36.4 MCV 90.3 MCH 26.6 L MCHC 29.4 L RDW 15.8 H Plt Count 301 MPV 9.6 Neut % (Auto) 66.2 Lymph % (Auto) 24.6 [place] % (Auto) 6.6 Eos % (Auto) 0.7 L Baso % (Auto) 0.6 Neut # (Auto) 7.5 H Lymph # (Auto) 2.8 [place] # (Auto) 0.7 Eos # (Auto) 0.1 Baso # (Auto) 0.1 Abs Immat Gran (auto) 0.15 H Imm/Tot Granulo (auto) 1.3 H Sodium 147 H Potassium 4.0 Chloride 106 Carbon Dioxide 43.3 H Anion Gap 1.7 BUN 21.0 H Creatinine 0.90 Est GFR ( Amer) >60 Est GFR (Non-Af Amer) >60 BUN/Creatinine Ratio 23.3 Glucose 100 Calcium 8.3 L Total Bilirubin 0.3 AST 12 L ALT 21 Alkaline Phosphatase 60 Total Protein 5.8 L Albumin 2.0 L Globulin 3.8 Albumin/Globulin Ratio 0.5 Preliminary micro results at discharge 10/28/24 21:28 Blood Culture Result 2 - Preliminary Blood NO GROWTH AT 36-48 HOURS. FINAL TO FOLLOW. 10/28/24 21:16 Blood Culture Result 1 - Preliminary Blood NO GROWTH AT 36-48 HOURS. FINAL TO FOLLOW. Discharge Plan Discharge Disposition: er SNF Condition: Fair Discharge Medications: New doxycycline hyclate 100 mg tablet 100 mg PO BID 7 Days Qty: 14 0RF amoxicillin-pot clavulanate 875-125 mg tablet 1 tab PO BID Qty: 14 0RF Continued furosemide 40 mg tablet 40 mg PO DAILY atorvastatin 40 mg tablet 40 mg PO .Qhs potassium chloride 10 mEq capsule, extended release 10 meq PO Q8H ipratropium-albuterol 0.5 mg-3 mg(2.5 mg base)/3 mL solution for nebulization 3 ml INHALATION Q6H diltiazem HCl 180 mg capsule,extended release 24hr 180 mg PO Q24H oxycodone-acetaminophen 5-325 mg tablet 1 tab PO Q6H PRN (Reason: pain) gabapentin 800 mg tablet 800 mg PO TID omeprazole 20 mg capsule,delayed release(DR/EC) 20 mg PO DAILY albuterol sulfate 90 mcg/actuation HFA aerosol inhaler 2 inh INHALATION Q6H metoprolol tartrate 25 mg tablet 25 mg PO Q12H Eliquis 5 mg tablet 5 mg PO Q12H Breztri Aerosphere 160-9-4.8 mcg/actuation HFA aerosol inhaler 2 inh INHALATION DAILY Discontinued levofloxacin 500 mg tablet 500 mg PO Q24H Print Language: [place] Citizen Forms: Portal Instructions Follow Up Appointments: f/u with PCP in one week
--- NOTE | 2024-10-31 11:39 | SWNOTE1 ---
JAMESON sent over dc orders, dc summary, labs, and vitals to April and Disha at [facility]. JAMESON called and set up trips for 5:00 (this was earliest Trips could do). JAMESON notified nurse. JAMESON called and left a message for pt's friend, Ainsley, to notify of time. JAMESON completed HENS. JMAESON took packet to the floor.
--- NOTE | 2024-10-31 13:29 | OT.DAILY ---
Occupational Therapy Daily Note OT Inpatient Daily Visit Note Start: 10/29/24 11:06 Freq: Status: Active Protocol: Document 10/31/24 13:22 [id number] (Rec: 10/31/24 13:29 [id number]) OT Visit Details Time In/Time Out Time In 13:14 Time Out 13:22 OT Treatment Plan Subjective Subjective Pt tolerated treatment well. Eager for d/c and return to [facility]. AAOx4. Objective Objective Pt agreeable to self-care to prepare for d/c back to SNF. Pt able to thread BUE through t-shirt, Min A threading head to mile accurately. Good orientation of shirt. At this time Pt refused to mile LB garments due to urinary catheter. Pt demonstrates good clothing management of personal belongings, to prepare for d/c this afternoon. Assessment Assessment Pt tolerated treatment well. No additional questions or concerns at this time. OT Furnace Roaster Timed Codes [facility] 22 Management minutes ( minutes) [facility] 1 Management units
== END 2024-10-31 17:05 | DRG 193 ==
LOC: ER 21:38 → ICU 22:31 → MS 10-29 13:42
PROVIDERS: Registered Nurse; Admitting Provider Internal Medicine; Emergency Provider Emergency Medicine; Family Provider Emergency Medicine Hospice and Palliative Medicine; PCP Family Medicine; Visit Provider Internal Medicine
DX: J18.9 Pneumonia, unspecified organism (principal); I50.33 Acute on chronic diastolic (congestive) heart failure; J96.21 Acute and chronic respiratory failure with hypoxia; J44.0 Chronic obstructive pulmonary disease with (acute) lower respiratory infection; E66.2 Morbid (severe) obesity with alveolar hypoventilation; I11.0 Hypertensive heart disease with heart failure; I48.0 Paroxysmal atrial fibrillation; E78.5 Hyperlipidemia, unspecified; Y95 Nosocomial condition; Z79.01 Long term (current) use of anticoagulants; Z79.890 Hormone replacement therapy; Z79.899 Other long term (current) drug therapy; Z99.81 Dependence on supplemental oxygen; Z11.52 Encounter for screening for COVID-19
CPT/HCPCS: 36415; 36569; 36592; 71045; 71260; 80048; 80053; 82800; 83880; 84484; 85007; 85025; 85027; 87040; 87804; 87811; 93005; 94640; 94660; 94761; 96374; 97161; 97165; 97530; 97535; 99291; C1887; J0696; J1940; J2543; J3370; Q9967